=== PATIENT | male | born 1990 | race African-American/Black ===

== ENCOUNTER 2018-04-06 20:52 | Emergency (ER) | payer OTHER, MEDICAID ==
[~2018-04-06] VITALS: Ht 165.1 cm; Wt 65.0 kg
[2018-04-07 00:48] VITALS: BP 99/43
== END 2018-04-07 01:08 | disposition home or self-care (01) ==
LOC: ER 20:52
DX: J45.909 Unspecified asthma, uncomplicated (principal); E86.0 Dehydration; F17.200 Nicotine dependence, unspecified, uncomplicated; F14.10 Cocaine abuse, uncomplicated; D57.1 Sickle-cell disease without crisis
CPT/HCPCS: 99283